=== PATIENT | female | born 1985 | race Caucasian/White ===

== ENCOUNTER 2016-12-11 20:48 | Emergency (ER) | payer MEDICAID ==
--- NOTE | 2016-12-17 02:33 | ER ---
ADMIT: 12/11/2016 RM/LOC: ER [facility] MR#: [id number] [address] [address] BRIAN LUNA [address] [place] [address] Emergency Room Report SEX: F AGE: 31 : 1985 DATE: 12/11/2016 HISTORY OF PRESENT ILLNESS: The patient presents to the emergency room complaining of cough for several days. She also brings her daughters to get checked. She has had cough and congestion. She has been put on antibiotic by her primary provider, Dr. Varma. PAST MEDICAL HISTORY: Anxiety, hypertension. PAST SURGICAL HISTORY: She has had a cholecystectomy. MEDICATIONS: She has medications for her blood pressure, which include: 1. Propranolol. 2. Triamterene. 3. Omeprazole. 4. Xanax. 5. Ativan. ALLERGIES: MORPHINE. SOCIAL HISTORY: She is smoker. When I asked if she still smokes, she says "I quit 5 days ago." PHYSICAL EXAMINATION: VITAL SIGNS: Within normal limits. Blood pressure 142/76, heart rate is 109, respirations 20, O2 sats 96%. GENERAL: Mildly anxious. HEENT: Normal inspection. Nasal mucosa patent. NECK: Supple. No adenopathy or thyromegaly. RESPIRATIONS: Wheezes throughout. ABDOMEN: Nontender. CVS: Tachycardia. SKIN: Good color. EXTREMITIES: Nontender. Breathing treatment slightly helpful, but not completely. CLINICAL IMPRESSION: Bronchitis acute with cough. PLAN: Given prescription Tessalon Perles, prednisone, and a shot of Decadron, also an inhaler albuterol. STEVEN Santos / Joe Lion MD / indira JOB #: [id number] CC: Joe Lion MD, Attending Physician Epi Guidry MD, Family Physician
== END 2016-12-11 22:34 | disposition home or self-care (01) ==
LOC: ER 20:48 → EDBD 20:48 → ER 22:34
DX: J20.9 Acute bronchitis, unspecified (principal); F41.9 Anxiety disorder, unspecified; I10 Essential (primary) hypertension; Z90.49 Acquired absence of other specified parts of digestive tract; Z79.899 Other long term (current) drug therapy; Z88.5 Allergy status to narcotic agent

== ENCOUNTER 2017-01-05 21:07 | Emergency (ER) | payer MEDICAID ==
--- NOTE | 2017-01-06 03:13 | ER ---
ADMIT: 01/05/2017 RM/LOC: ER [facility] MR#: [id number] [address] [address] BRIAN LUNA [address] [place] [address] Emergency Room Report SEX: F AGE: 31 : 1985 DATE: 01/05/2017 The patient is a 31-year-old female with known ovarian cyst, currently using Mirena, complains of left lower quadrant abdominal flank pain without urgency, fevers, or chills. Does admit to nausea and vomiting. Exam remarkable for obese, exquisitely tender left flank and left lower quadrant female, without fever. WBC 10.7, lactic 1.0, CRP 1.01, lipase 173, hCG negative. UA; 2 rbc's, negative dip. CT confirms left ovarian cyst. Ultrasound shows minimal pelvic fluid, no evidence of torsion. The patient was given a liter of fluid, Zofran, Toradol, Fentanyl with relief of pain. Home with hydrocodone 5/325 mg #20 plus #6, Zofran 8 mg t.i.d. p.r.n. #30 plus #3. Follow up with Dr. Iyer as scheduled. Cipriano Floyd MD/ indira JOB #: [id number] CC: Cipriano Floyd MD, Attending Physician Epi Guidry MD, Family Physician MD Epi Elena MD
== END 2017-01-05 23:44 | disposition home or self-care (01) ==
LOC: ER 21:07 → EDBD 21:07 → ER 23:44
DX: N83.202 Unspecified ovarian cyst, left side (principal); I10 Essential (primary) hypertension; F41.9 Anxiety disorder, unspecified; Z88.5 Allergy status to narcotic agent; Z88.8 Allergy status to other drugs, medicaments and biological substances; Z79.899 Other long term (current) drug therapy

== ENCOUNTER 2017-02-04 17:20 | Emergency (ER) | payer MEDICAID ==
--- NOTE | 2017-02-21 08:14 | ER ---
ADMIT: 02/04/2017 RM/LOC: ER [facility] MR#: [id number] [address] [address] [address]RIAN LUNA [address] [place] [address] Emergency Room Report SEX: F AGE: 31 : 1985 DATE: 02/04/2017 HISTORY OF PRESENT ILLNESS: The patient is a 31-year-old female, who presents to the emergency room complaining of high blood pressure, leg swelling, blurry vision, and right chest pain, started 2 hours ago while she was at work. She works at an [employer] where she sits all day long and is on the computer. She also has a history of anxiety and this could have played a part in her symptoms. She has a history of hypertension and hypothyroidism. ALLERGIES: INCLUDE MORPHINE. SOCIAL HISTORY: She still smokes a pack a day and drinks alcohol occasionally. PHYSICAL EXAMINATION: VITAL SIGNS: Her blood pressure is 143/89, pulse 83, respirations 18, temp is 96.9, O2 saturation 99%. EXTREMITIES: She had no issues except her right leg ankle was swollen. There is some tightness in the calf area, and because she says she has a family history of DVT's, I decided to go ahead and ultrasound her leg for a DVT. The results came back negative. LABORATORY DATA: I did do also a CBC, normal, 10.8, potassium 3.5, TSH 1.810, H. pylori nonreactive, negative, rbc's 2 in the urine. EKG normal sinus rhythm at 70 beats per minute. The blood pressure when she was in the room waiting for labs went down to 128/71, heart rate 80, O2 sats 96%. EMERGENCY DEPARTMENT COURSE: I went and informed her of the labs. She was more relaxed but encouraged her to follow up with her primary provider and wear some pressure stockings that will help with the edema of her legs. She has the right medication for this therapy, which is triamterene, to lower the blood pressure through a diuretic form. DIAGNOSES: At this point: 1. Leg edema, right leg. 2. History of anxiety. 3. Hypertension. 4. History with elevated blood pressure at this time. STEVEN Santos / Matias Caballero MD / davidl JOB #: [id number] CC: Matias Caballero MD, Attending Physician Epi Guidry MD, Family Physician
== END 2017-02-04 19:35 | disposition home or self-care (01) ==
LOC: ER 17:20
DX: I10 Essential (primary) hypertension (principal); R60.0 Localized edema; F41.9 Anxiety disorder, unspecified; F17.210 Nicotine dependence, cigarettes, uncomplicated; E03.9 Hypothyroidism, unspecified; Z88.8 Allergy status to other drugs, medicaments and biological substances; Z90.49 Acquired absence of other specified parts of digestive tract